=== PATIENT | male | born 1945 | race Caucasian/White ===

== ENCOUNTER 2018-09-04 04:17 | Observation (INO) | payer OTHER ==
[2018-09-04 05:01] VITALS: BMI 31.1
[2018-09-04] MEDS ORDERED: ONDANSETRON 4 MG/2 ML VIAL IVPUSH ONE (06:08)
[2018-09-04] MEDS ORDERED: ONDANSETRON 4 MG/2 ML VIAL ONE (06:23)
[2018-09-04 06:24] LABS: HEMATOCRIT 39.8 % (35.4-49); HEMOGLOBIN 13.5 GM/dL (11.7-16.9); MCH 30.6 pg (25.7-33.7); MCHC 33.9 g/dl (32.0-35.9); MEAN CELL VOLUME 90.4 fl (80-96); MEAN PLT VOLUME 10.8 fl (7.5-11.1); PLATELET COUNT 140 K/MM3 (134-434); RDW 13.2 % (11.9-15.9); WHITE BLOOD COUNT 10.8 K/mm3 (4.0-10.0)
[2018-09-04 06:51] LABS: ALBUMIN 4.3 g/dl (3.4-5.0); ALK PHOS 90 U/L (45-117); ANION GAP 8 MMOL/L (8-16); BILIRUBIN,TOTAL 0.4 mg/dL (0.2-1); BLOOD UREA NITROGEN 13 mg/dL (7-18); CHLORIDE 103 mmol/L (98-107); CO2 26 mmol/L (21-32); CREATININE 0.9 mg/dL (0.55-1.3); GLUCOSE,RANDOM 267 mg/dL (74-106); POTASSIUM 4.5 mmol/L (3.5-5.1); SGOT/AST 17 U/L (15-37); SGPT/ALT 40 U/L (13-61); SODIUM 137 mmol/L (136-145); TOT PROT 7.6 g/dl (6.4-8.2)
--- NOTE | 2018-09-04 07:43 | PDOC ---
History of Present Illness - General Chief Complaint: Altered Mental Status Stated Complaint: Altered Mental Status Time Seen by Provider: 09/04/18 07:11 History Source: Patient, Family (, daughter, son in law) Exam Limitations: No Limitations - History of Present Illness Initial Comments: 09/04/18 07:35 72 yo male pmh HTN, [place], CHF, COPD, DM and s/p Prostatectomy BIBA to the ED for home AMS. Family present, state at 3 am pt noted to be breathing very shallow, deep breaths, became rigid and suddenly confused. Pt unable to speak or ambulate , EMS on arrival reported agitation requiring Ketamine. Family state around 5 30 , after Ketamine dissipated, pt no longer altered, resting comfortably without complaints. Of note, pt had a fall in [place] 1 month ago, hit his head on a rock and has had intermittent headaches since then, followed up with PCP 3 days ago, blood work pending, no imaging, no medication changes made how ever, states he received 2 Vaccinations (tetanus and Zoster). Past History - Past Medical History Allergies/Adverse Reactions: Allergies Allergy/AdvReac Type Severity Reaction Status Date / Time No Known Drug Allergies Allergy Verified 09/04/18 05:01 Home Medications: Ambulatory Orders Aspirin [ASA -] 81 mg PO DAILY 10/29/13 Candesartan Cilexetil [Atacand -] 16 mg PO BID 09/04/18 Enalapril Maleate [Vasotec] 20 mg PO DAILY 09/04/18 Insulin Glargine,Hum.rec.anlog [Toujeo Solostar] 0 unit SQ ASDIR 09/04/18 Rosuvastatin [Crestor -] 10 mg PO DAILY 09/04/18 Anemia: No Asthma: Yes Cancer: Yes (PROSTATE) Cardiac Disorders: No CVA: No COPD: No CHF: No Dementia: No Diabetes: No GI Disorders: No Disorders: Yes ([place] PROSTATE) HTN: No Hypercholesterolemia: No Liver Disease: No Seizures: No Thyroid Disease: No - Surgical History Abdominal Surgery: No Appendectomy: No Cardiac Surgery: No Cholecystectomy: No Lung Surgery: No Neurologic Surgery: No Orthopedic Surgery: No - Suicide/Smoking/Psychosocial Hx Smoking History: Never smoked Have you smoked in the past 12 months: No If you are a former smoker, when did you quit?: 1974 Information on smoking cessation initiated: No Hx Alcohol Use: No Drug/Substance Use Hx: No Substance Use Type: None Hx Substance Use Treatment: No *Physical Exam - Vital Signs Last Vital Signs Temp Pulse Resp BP Pulse Ox 97.6 F 92 H 18 170/97 99 09/04/18 04:17 09/04/18 04:17 09/04/18 04:17 09/04/18 04:17 09/04/18 04:17 ED Treatment Course - LABORATORY CBC & Chemistry Diagram: 09/04/18 06:15 09/04/18 06:15 - ADDITIONAL ORDERS Additional order review: Laboratory Results 09/04/18 09/04/18 09/04/18 06:15 06:15 06:15 WBC 10.8 H RBC 4.40 Hgb 13.5 Hct 39.8 D MCV 90.4 MCH 30.6 MCHC 33.9 RDW 13.2 Plt Count 140 MPV 10.8 Sodium 137 Potassium 4.5 Chloride 103 Carbon Dioxide 26 Anion Gap 8 BUN 13 Creatinine 0.9 Est GFR (CKD-EPI)AfAm 97.86 Est GFR (CKD-EPI)NonAf 84.43 Random Glucose 267 H Lactic Acid 3.1 H* Calcium 9.0 Total Bilirubin 0.4 AST 17 ALT 40 Alkaline Phosphatase 90 Creatine Kinase 200 Creatine Kinase Index 0.7 CK-MB (CK-2) 1.4 Troponin I < 0.02 Total Protein 7.6 Albumin 4.3 09/04/18 06:15 RBC 4.40 MCV 90.4 MCHC 33.9 RDW 13.2 MPV 10.8 - Medications Given in the ED: ED Medications Discontinued Medications Generic Name Dose Route Start Last Admin Trade Name Alexis PRN Reason Stop Dose Admin Ondansetron HCl 4 mg 09/04/18 06:08 09/04/18 06:27 Zofran Injection IVPUSH 09/04/18 06:09 4 mg ONCE ONE Administration *DC/Admit/Observation/Transfer Diagnosis at time of Disposition: Altered mental status - Discharge Dispostion Condition at time of disposition: Fair Decision to Admit order: Yes - Referrals - Patient Instructions - Post Discharge Activity
[2018-09-04] MEDS ORDERED: SODIUM CHLORIDE 250 ML IV STA (08:07)
[2018-09-04] MEDS ORDERED: ACETAMINOPHEN 325 MG TABLET (FP) PO ONE (08:53)
--- NOTE | 2018-09-04 08:59 | PDOC ---
Attending Attestation - Resident Resident Name: LiliMack - ED Attending Attestation I have performed the following: I have examined & evaluated the patient, The case was reviewed & discussed with the resident, I agree w/resident's findings & plan, Exceptions are as noted - HPI HPI: 09/04/18 08:53 72 yo male pmh HTN, [place], CHF, COPD, DM and s/p Prostatectomy BIBA to the ED for home AMS. At approximately 3 AM found patient rigid unresponsive with difficulty breathing. Episode lasted for a few minutes son-in-law performed the Heimlich maneuver patient then became arousable still appeared confused was not at his baseline then became very agitated EMS was called given ketamine in the field. Patient now back to baseline. - Physicial Exam PE: 09/04/18 08:57 ROS: A complete review of 10 out of 10 review of systems is taken and is negative apart from what is previously mentioned below and in the HPI. Vitals: Triage Vital signs reviewed General Appearance: no acute distress, well nourished well developed, Head: Atraumatic, Eyes: Pupils equal reactive round, extraocular movement intact Neck: Supple;No Nucal rigidity Chest Wall: Nontender Cardiac: Regular rate and rhythym, no murmurs, no rubs, no gallops, Lungs: Clear to auscultation bilateral, good air movement bilaterally, Abdomen: Soft, non distended, normal bowel sounds, non tender to palpation Extremities: Full range of motion to all extremities, no cyanosis, clubbing, or edema Skin: Warm and dry, no rashes or lesions, no rash, no petechiae Neuro: Cranial Nerves 2-12 grossly intact, Strength intact to all extremities, Sensation intact to all extremities,gait normal Psych: normal mood, normal affect - Medical Decision Making 09/04/18 08:58 Well-appearing no apparent distress now back to baseline mental status differential diagnosis includes TIA versus seizure Labs head CT within normal limits We'll admit to medicine for further management.
[2018-09-04] MEDS ORDERED: ACETAMINOPHEN 325 MG TABLET (FP) ONE (09:11)
[2018-09-04] MEDS ORDERED: ONDANSETRON 4 MG/2 ML VIAL IVPUSH PRN (09:33)
--- NOTE | 2018-09-04 09:38 | HP ---
Admitting History and Physical - Admission Chief Complaint: I could not breathe History of Present Illness: Mr Santamaria is a very pleasant 72 year old male who was brought in by his family for difficulty breathing and confusion. He recently flew back from [facility] 1 week ago. He lives 6 months there and 6 months here. Of note he fell and hit his head 1 month ago and has a chronic headache since. However he was seen by both his physician there and here. It was also a 5 hour flight which he remained seated for the entire time. He denies leg pain or swelling since the trip. He was in his normal state of health, he has a history of CHF with [facility] and this has not changed. He was prescribed a diuretic in the past but stopped taking it over a year ago because he felt fine. This morning he woke up at 3am very short of breath. He was gasping for air, breathing rapidly, and trying to take a deep breath. He was also confused and combative at this time. Family got him out of bed and walked him, he was unsteady and when they sat him down his breathing improved but he was still confused. At this time he started speaking clearly but was not making sense per family, asking questions like "where am I" and who are you". EMS was called and he remained combative so he received ketamine in the field and was brought in. Here he is feeling better. He denies current lightheadedness, dizziness, confusion, fevers, chills, chest pain or pressure, shortness of breath, nausea, vomiting, diarrhea, constipation , difficulty or pain on urination, or edema. History Source: Patient, Family Member Limitations to Obtaining History: Language Barrier - Past Medical History Cardiovascular: Yes: CHF, HTN, Hyperlipdemia Renal/: Yes: Cancer Endocrine: Yes: Diabetes Mellitus - Past Surgical History Past Surgical History: Yes: TURP - Smoking History Smoking history: Former smoker Have you smoked in the past 12 months: No If you are a former smoker, when did you quit?: 1974 - Alcohol/Substance Use Hx Alcohol Use: No History of Substance Use: reports: None - Social History Usual Living Arrangement: Yes: With Spouse ADL: Independent History of Recent Travel: Yes Home Medications - Allergies Allergies/Adverse Reactions: Allergies Allergy/AdvReac Type Severity Reaction Status Date / Time No Known Drug Allergies Allergy Verified 09/04/18 05:01 - Home Medications Home Medications: Ambulatory Orders Aspirin [ASA -] 81 mg PO DAILY 10/29/13 Candesartan Cilexetil [Atacand -] 16 mg PO BID 09/04/18 Enalapril Maleate [Vasotec] 20 mg PO DAILY 09/04/18 Insulin Glargine,Hum.rec.anlog [Valeri Mcdonaldostar] 0 unit SQ ASDIR 09/04/18 Rosuvastatin [Crestor -] 10 mg PO DAILY 09/04/18 Family Disease History - Family Disease History Family Disease History: Respiratory: Mother (asthma) Review of Systems Findings/Remarks: full review of systems obtained, as per HPI and otherwise negative. Physical Examination Vital Signs: Vital Signs Temperature 36.4 C 09/04/18 04:17 Pulse Rate 79 09/04/18 07:53 Respiratory Rate 19 09/04/18 07:53 Blood Pressure 149/87 09/04/18 07:53 O2 Sat by Pulse Oximetry (%) 100 09/04/18 07:53 Constitutional: Yes: Well Nourished, No Distress, Calm Eyes: Yes: Conjunctiva Clear, EOM Intact, PERRL HENT: Yes: Atraumatic, Normocephalic Cardiovascular: Yes: Regular Rate and Rhythm. No: Gallop, Murmur, Rub Respiratory: Yes: Regular, CTA Bilaterally. No: Rales, Rhonchi, Wheezes Gastrointestinal: Yes: Normal Bowel Sounds, Soft. No: Distention, Tenderness Extremities: Yes: WNL Edema: No Labs: CBC, BMP 09/04/18 06:15 09/04/18 06:15 Imaging - Results Chest X-ray: Report Reviewed, Image Reviewed Cat Scan: Report Reviewed EKG: Image Reviewed Problem List - Problems (1) SOB (shortness of breath) Assessment/Plan: -unclear cause -history of CHF and off of diuretics, possible CHF exacerbation with hypoxia -will obtain BNP and ECHO -even though did not complain of leg swelling, consider PE -will check d-dimer and duplex dopplers -if negative, no need for CTA -if positive will obtain -since stable can hold on anticoagulation -monitor overnight Code(s): R06.02 - SHORTNESS OF BREATH (2) Altered mental status Assessment/Plan: -unclear cause and currently resolved -with elevated lactic acid possible seizure but very atypical -appreciate Dr Valdze and case discussed -no need for urgent seizure medications but since with head trauma in past can benefit from outpatient EEG -otherwise as above Code(s): R41.82 - ALTERED MENTAL STATUS, UNSPECIFIED (3) HTN (hypertension) Assessment/Plan: -continue outpatient regimen Code(s): I10 - ESSENTIAL (PRIMARY) HYPERTENSION (4) Diabetes Assessment/Plan: -diabetic diet -SSI and FSBS Code(s): E11.9 - TYPE 2 DIABETES MELLITUS WITHOUT COMPLICATIONS (5) HLD (hyperlipidemia) Assessment/Plan: -continue statin Code(s): E78.5 - HYPERLIPIDEMIA, UNSPECIFIED (6) CHF (congestive heart failure) Assessment/Plan: -history of CHF in past -as above Code(s): I50.9 - HEART FAILURE, UNSPECIFIED
[2018-09-04 10:09] LABS: URINE APPEARANCE CLEAR; URINE BILIRUBIN NEGATIVE (NEGATIVE); URINE COLOR YELLOW; URINE GLUCOSE (UA) 3+ (NEGATIVE); URINE KETONE NEGATIVE (NEGATIVE); URINE LEUK ESTERASE NEGATIVE (NEGATIVE); URINE NITRITE NEGATIVE (NEGATIVE); URINE PROTEIN NEGATIVE (NEGATIVE); URINE UROBILINOGEN 0.2 mg/dL (0.2-1.0)
[2018-09-04] MEDS ORDERED: ENALAPRIL MALEATE 5 MG TABLET (FP) ONE ×3 (10:17→10:19)
[2018-09-04] MEDS ORDERED: ASPIRIN 81 MG CHEWABLE TABLETS ONE (10:17)
[2018-09-04] MEDS: ASPIRIN 81 MG CHEWABLE TABLETS PO SCH (10:20)
[2018-09-04] MEDS: ENALAPRIL MALEATE 10 MG TABLET (FP) PO SCH (10:20)
--- NOTE | 2018-09-04 10:58 | CONSULT ---
Consult - text type - Consultation Consultation Note: Neurology History of Present Illness: Pleasant 72 year old male who was brought in by his family for difficulty breathing and confusion. He recently flew back from [facility] 1 week prior to admission. He lives 6 months there and 6 months here. Of note he fell and hit his head 1 month ago and has a chronic headache since. However he was seen by both his physician there and here. It was also a 5 hour flight which he remained seated for the entire time. He denied leg pain or swelling since the trip. He was in his normal state of health, he has a history of CHF with [facility] and this has not changed. He was prescribed a diuretic in the past but stopped taking it over a year ago because he felt fine. Reportedly, the morning of admission he woke up at 3am very short of breath. He was gasping for air, breathing rapidly, and trying to take a deep breath. He was also confused and combative at this time. Family got him out of bed and walked him, he was unsteady and when they sat him down his breathing improved but he was still confused. At this time he started speaking clearly but was not making sense per family, asking questions like "where am I" and who are you". EMS was called and he remained combative so he received ketamine in the field and was brought in. In ER was reportedly was feeling better. He denied lightheadedness, dizziness, confusion, fevers, chills, chest pain or pressure, shortness of breath, nausea, vomiting, diarrhea, constipation, difficulty or pain on urination, or edema. Discussed case with the ER and he was admitted for monitoring and observation. He appears to be neurologically at baseline and without any abnormal behavior. Noncontrast head CT was completed and without any acute structural abnormalities. at this point, I would not start him on antiepileptic medication as he does not have prior history of seizures and would not want him committed to this type of medication long-term for a first-time event. - Past Medical History Cardiovascular: Yes: CHF, HTN, Hyperlipdemia Renal/: Yes: Cancer Endocrine: Yes: Diabetes Mellitus - Past Surgical History Past Surgical History: Yes: TURP - Smoking History Smoking history: Former smoker Have you smoked in the past 12 months: No If you are a former smoker, when did you quit?: 1974 - Alcohol/Substance Use Hx Alcohol Use: No History of Substance Use: reports: None - Social History Usual Living Arrangement: Yes: With Spouse ADL: Independent History of Recent Travel: Yes Home Medications - Allergies Allergies/Adverse Reactions: Allergies Allergy/AdvReac Type Severity Reaction Status Date / Time No Known Drug Allergies Allergy Verified 09/04/18 05:01 - Home Medications Home Medications: Ambulatory Orders Aspirin [ASA -] 81 mg PO DAILY 10/29/13 Candesartan Cilexetil [Atacand -] 16 mg PO BID 09/04/18 Enalapril Maleate [Vasotec] 20 mg PO DAILY 09/04/18 Insulin Glargine,Hum.rec.anlog [Toujeo Solostar] 0 unit SQ ASDIR 09/04/18 Rosuvastatin [Crestor -] 10 mg PO DAILY 09/04/18 Family Disease History - Family Disease History Family Disease History: Respiratory: Mother (asthma) Review of Systems Findings/Remarks: full review of systems obtained, as per HPI and otherwise negative. Physical Examination Vital Signs: Vital Signs Temperature 36.4 C 09/04/18 04:17 Pulse Rate 79 09/04/18 07:53 Respiratory Rate 19 09/04/18 07:53 Blood Pressure 149/87 09/04/18 07:53 O2 Sat by Pulse Oximetry (%) 100 09/04/18 07:53 Constitutional: Yes: Well Nourished, No Distress, Calm Eyes: Yes: Conjunctiva Clear, EOM Intact, PERRL HENT: Yes: Atraumatic, Normocephalic Cardiovascular: Yes: Regular Rate and Rhythm. No: Gallop, Murmur, Rub Respiratory: Yes: Regular, CTA Bilaterally. No: Rales, Rhonchi, Wheezes Gastrointestinal: Yes: Normal Bowel Sounds, Soft. No: Distention, Tenderness Extremities: Yes: WNL Neuro: CN intact, moves all extremities equally, sensory intact, no slurred speech, good and nose normal, gait deferred CBCD WBC 10.8 K/mm3 (4.0-10.0) H 09/04/18 06:15 RBC 4.40 M/mm3 (4.00-5.60) 09/04/18 06:15 Hgb 13.5 GM/dL (11.7-16.9) 09/04/18 06:15 Hct 39.8 % (35.4-49) D 09/04/18 06:15 MCV 90.4 fl (80-96) 09/04/18 06:15 MCHC 33.9 g/dl (32.0-35.9) 09/04/18 06:15 RDW 13.2 % (11.9-15.9) 09/04/18 06:15 Plt Count 140 K/MM3 (134-434) 09/04/18 06:15 MPV 10.8 fl (7.5-11.1) 09/04/18 06:15 CMP Sodium 137 mmol/L (136-145) 09/04/18 06:15 Potassium 4.5 mmol/L (3.5-5.1) 09/04/18 06:15 Chloride 103 mmol/L (98-107) 09/04/18 06:15 Carbon Dioxide 26 mmol/L (21-32) 09/04/18 06:15 Anion Gap 8 MMOL/L (8-16) 09/04/18 06:15 BUN 13 mg/dL (7-18) 09/04/18 06:15 Creatinine 0.9 mg/dL (0.55-1.3) 09/04/18 06:15 Random Glucose 267 mg/dL (74-106) H 09/04/18 06:15 Calcium 9.0 mg/dL (8.5-10.1) 09/04/18 06:15 Total Bilirubin 0.4 mg/dL (0.2-1) 09/04/18 06:15 AST 17 U/L (15-37) 09/04/18 06:15 ALT 40 U/L (13-61) 09/04/18 06:15 Alkaline Phosphatase 90 U/L (45-117) 09/04/18 06:15 Total Protein 7.6 g/dl (6.4-8.2) 09/04/18 06:15 Albumin 4.3 g/dl (3.4-5.0) 09/04/18 06:15 CARDIAC ENZYMES Creatine Kinase 200 U/L (26-308) 09/04/18 06:15 Troponin I < 0.02 ng/ml (0.00-0.05) 09/04/18 06:15 Imaging - Results Chest X-ray: Report Reviewed Cat Scan: Report Reviewed Plan Pleasant 72 year old male who was brought in by his family for difficulty breathing and confusion. He recently flew back from [facility] 1 week prior to admission. He lives 6 months there and 6 months here. Of note he fell and hit his head 1 month ago and has a chronic headache since. However he was seen by both his physician there and here. It was also a 5 hour flight which he remained seated for the entire time. He denied leg pain or swelling since the trip. He was in his normal state of health, he has a history of CHF with [facility] and this has not changed. He was prescribed a diuretic in the past but stopped taking it over a year ago because he felt fine. Reportedly, the morning of admission he woke up at 3am very short of breath. He was gasping for air, breathing rapidly, and trying to take a deep breath. He was also confused and combative at this time. Family got him out of bed and walked him, he was unsteady and when they sat him down his breathing improved but he was still confused. At this time he started speaking clearly but was not making sense per family, asking questions like "where am I" and who are you". EMS was called and he remained combative so he received ketamine in the field and was brought in. In ER was reportedly was feeling better. He denied lightheadedness, dizziness, confusion, fevers, chills, chest pain or pressure, shortness of breath, nausea, vomiting, diarrhea, constipation, difficulty or pain on urination, or edema. Discussed case with the ER and he was admitted for monitoring and observation. He appears to be neurologically at baseline and without any abnormal behavior. Noncontrast head CT was completed and without any acute structural abnormalities. at this point, I would not start him on antiepileptic medication as he does not have prior history of seizures and would not want him committed to this type of medication long-term for a first-time event. Continue respiratory/pulmonary management. glucose elevated, recommend tighter glycemic control. Monitor blood pressure, maintain normotensive range, continue current regiment. Continue statin for hyperlipidemia, continue adequate hydration.
--- NOTE | 2018-09-04 12:54 | EKG ---
Test Reason : Blood Pressure : / mmHG Vent. Rate : 077 BPM Atrial Rate : 077 BPM P-R Int : 170 ms QRS Dur : 098 ms QT Int : 382 ms P-R-T Axes : 038 -11 018 degrees QTc Int : 432 ms NORMAL SINUS RHYTHM INFERIOR INFARCT (CITED ON OR BEFORE 30-OCT-2013) ABNORMAL ECG WHEN COMPARED WITH ECG OF 01-NOV-2013 16:27, NO SIGNIFICANT CHANGE WAS FOUND Confirmed by CARMELLA SNELL, BRANDON ([id number]) on 09/04/2018 12:54:12 PM Referred By: Confirmed By:BRANDON WEIR MD
[2018-09-04] MEDS: INSULIN SLIDING SCALE (NOVOLOG) 1 VIAL SQ SCH ×3 (13:58→22:05)
[2018-09-04] MEDS ORDERED: INSULIN (NOVOLOG) ASPART 100 UNITS/ML 10ML VIAL ONE (14:03)
[2018-09-04] MEDS: ACETAMINOPHEN 325 MG TABLET (FP) PO PRN (15:51)
[2018-09-04] MEDS ORDERED: PNEUMOC 13-VAL CONJ-DIP CRM/PF 0.5 ML DISP.SYRIN IM ONE (16:04)
--- NOTE | 2018-09-04 16:23 | ECHO ---
Name: BEAU ELLIOTT Exam:Adult Echocardiogram Study Date: 09/04/2018 01:31 PM Age: 72 yrs Reason For Study: LUNG CONGESTION Height: 62 in Weight: 170 lb BSA: 1.8 m2 MMode/2D Measurements & Calculations IVSd: 0.99 cm Ao root diam: 3.9 cm LVIDd: 3.9 cm LA dimension: 3.4 cm LVIDs: 2.3 cm ACS: 1.7 cm LVPWd: 1.0 cm IVSs: 1.6 cm LVPWs: 1.3 cm EDV(Teich): 67.1 ml ESV(Teich): 17.3 ml LVOT diam: 2.0 cm Doppler Measurements & Calculations MV E max arsenio: 80.9 cm/sec Ao V2 max: 190.7 cm/sec MV A max arsenio: 93.8 cm/sec Ao max P.6 mmHg MV E/A: 0.86 Ao V2 mean: 135.3 cm/sec Ao mean P.3 mmHg Ao V2 VTI: 35.8 cm LISSA(I,D): 2.0 cm2 LISSA(V,D): 2.1 cm2 LV V1 max P.9 mmHg SV(LVOT): 70.6 ml LV V1 mean P.7 mmHg LV V1 max: 121.5 cm/sec LV V1 mean: 91.3 cm/sec LV V1 VTI: 21.7 cm TR max arsenio: 226.7 cm/sec Med Peak E' Arsenio: 5.8 cm/sec TR max P.6 mmHg Med E/e': 13.9 Lat Peak E' Arsenio: 8.1 cm/sec Lat E/e': 10.0 Procedure A complete two-dimensional transthoracic echocardiogram was performed (2D, M-mode, Doppler and color flow Doppler). Left Ventricle The left ventricular size, thickness and function are normal. The left ventricular ejection fraction is normal. Ejection Fraction = 60-65%. The left ventricular wall motion is normal. Right Ventricle The right ventricle is normal in size and function. Atria Normal left and right atrial size and function. Mitral Valve There is no mitral regurgitation noted. Tricuspid Valve There is trace tricuspid regurgitation. Right ventricular systolic pressure is normal. Aortic Valve The aortic valve is trileaflet. No hemodynamically significant valvular aortic stenosis. No aortic regurgitation is present. Pulmonic Valve There is no pulmonic valvular regurgitation. Great Vessels Mild aortic root dilatation. Pericardium/Pleura There is no pericardial effusion. Interpretation Summary The left ventricular size, thickness and function are normal The right ventricle is normal in size and function. There is trace tricuspid regurgitation. Mild aortic root dilatation. MD Frank Hassan 09/04/2018 04:22 PM
[2018-09-04] MEDS ORDERED: RANITIDINE HCL 150 MG TABLET (FP) PO ONE (18:30)
[2018-09-04] MEDS ORDERED: ROSUVASTATIN CA 10 MG TABLET (FP) PO SCH (22:00)
[2018-09-05] MEDS: ACETAMINOPHEN 325 MG TABLET (FP) PO PRN ×2 (03:15→10:08)
[2018-09-05] MEDS: INSULIN SLIDING SCALE (NOVOLOG) 1 VIAL SQ SCH ×2 (06:29→11:32)
[2018-09-05] MEDS ORDERED: INSULIN (NOVOLOG) ASPART 100 UNITS/ML 10ML VIAL ONE (06:59)
[2018-09-05 07:43] LABS: BASO % 0.3 % (0-2.0); EOS % 2.8 % (0-4.5); HEMATOCRIT 37.1 % (35.4-49); HEMOGLOBIN 12.4 GM/dL (11.7-16.9); LYMPH % 27.7 % (8-40); MCH 30.4 pg (25.7-33.7); MCHC 33.3 g/dl (32.0-35.9); MEAN CELL VOLUME 91.3 fl (80-96); MEAN PLT VOLUME 11.3 fl (7.5-11.1); MONO % 8.6 % (3.8-10.2); NEUT % 60.6 % (42.8-82.8); PLATELET COUNT 138 K/MM3 (134-434); RBC 4.07 M/mm3 (4.00-5.60); RDW 13.3 % (11.9-15.9); WHITE BLOOD COUNT 7.4 K/mm3 (4.0-10.0)
[2018-09-05 07:45] LABS: CALCIUM 8.8 mg/dL (8.5-10.1); CREATININE 0.8 mg/dL (0.55-1.3); MAGNESIUM 2.3 mg/dL (1.8-2.4); PHOSPHOROUS 3.1 mg/dL (2.5-4.9); POTASSIUM 4.2 mmol/L (3.5-5.1)
--- NOTE | 2018-09-05 08:36 | PN ---
Progress Note (short form) - Note Progress Note: Neurology History of Present Illness: Pleasant 72 year old male who was brought in by his family for difficulty breathing and confusion. He recently flew back from [facility] 1 week prior to admission. He lives 6 months there and 6 months here. Of note he fell and hit his head 1 month ago and has a chronic headache since. However he was seen by both his physician there and here. It was also a 5 hour flight which he remained seated for the entire time. He denied leg pain or swelling since the trip. He was in his normal state of health, he has a history of CHF with [facility] and this has not changed. He was prescribed a diuretic in the past but stopped taking it over a year ago because he felt fine. Reportedly, the morning of admission he woke up at 3am very short of breath. He was gasping for air, breathing rapidly, and trying to take a deep breath. He was also confused and combative at this time. Family got him out of bed and walked him, he was unsteady and when they sat him down his breathing improved but he was still confused. At this time he started speaking clearly but was not making sense per family, asking questions like "where am I" and who are you". EMS was called and he remained combative so he received ketamine in the field and was brought in. In ER was reportedly was feeling better. He denied lightheadedness, dizziness, confusion, fevers, chills, chest pain or pressure, shortness of breath, nausea, vomiting, diarrhea, constipation, difficulty or pain on urination, or edema. Discussed case with the ER and he was admitted for monitoring and observation. He appears to be neurologically at baseline and without any abnormal behavior. Noncontrast head CT was completed and without any acute structural abnormalities. at this point, I would not start him on antiepileptic medication as he does not have prior history of seizures and would not want him committed to this type of medication long-term for a first-time event. No events overnight and neurologically stable at this time. Does describe slight headache and constitutional symptoms but otherwise appears at baseline. Active Medications Acetaminophen (Tylenol -) 650 mg PO Q4H PRN PRN Reason: PAIN 1-3 Last Admin: 09/05/18 03:15 Dose: 650 mg Aspirin (Asa -) 81 mg PO DAILY [facility] Last Admin: 09/04/18 10:20 Dose: 81 mg Enalapril Maleate (Vasotec -) 20 mg PO DAILY [facility] Last Admin: 09/04/18 10:20 Dose: 20 mg Insulin Aspart (Novolog Vial Sliding Scale -) 1 vial SQ [facility]; Protocol Last Admin: 09/05/18 06:29 Dose: 4 unit Non-Formulary Medication (Candesartan Cilexetil) 16 mg PO BID [facility] Ondansetron HCl (Zofran Injection) 4 mg IVPUSH Q6H PRN PRN Reason: NAUSEA Rosuvastatin Calcium (Crestor -) 10 mg PO HS [facility] Last Admin: 09/04/18 22:05 Dose: 10 mg - Allergies Allergies/Adverse Reactions: Allergies Allergy/AdvReac Type Severity Reaction Status Date / Time No Known Drug Allergies Allergy Verified 09/04/18 05:01 - Home Medications Home Medications: Ambulatory Orders Aspirin [ASA -] 81 mg PO DAILY 10/29/13 Candesartan Cilexetil [Atacand -] 16 mg PO BID 09/04/18 Enalapril Maleate [Vasotec] 20 mg PO DAILY 09/04/18 Insulin Glargine,Hum.rec.anlog [Toujeo Solostar] 0 unit SQ [facility] 09/04/18 Rosuvastatin [Crestor -] 10 mg PO DAILY 09/04/18 Physical Examination Vital Signs: Vital Signs Period Temp Pulse Resp BP Sys/Banks Pulse Ox Last 24 Hr 98.4 F-99.5 F 55-86 16-20 111-134/59-81 93-97 Constitutional: Yes: Well Nourished, No Distress, Calm Eyes: Yes: Conjunctiva Clear, EOM Intact, PERRL HENT: Yes: Atraumatic, Normocephalic Cardiovascular: Yes: Regular Rate and Rhythm. No: Gallop, Murmur, Rub Respiratory: Yes: Regular, CTA Bilaterally. No: Rales, Rhonchi, Wheezes Gastrointestinal: Yes: Normal Bowel Sounds, Soft. No: Distention, Tenderness Extremities: Yes: WNL Neuro: CN intact, moves all extremities equally, sensory intact, no slurred speech, good and nose normal, gait deferred CBCD WBC 7.4 K/mm3 (4.0-10.0) 09/05/18 05:37 RBC 4.07 M/mm3 (4.00-5.60) 09/05/18 05:37 Hgb 12.4 GM/dL (11.7-16.9) 09/05/18 05:37 Hct 37.1 % (35.4-49) 09/05/18 05:37 MCV 91.3 fl (80-96) 09/05/18 05:37 MCHC 33.3 g/dl (32.0-35.9) 09/05/18 05:37 RDW 13.3 % (11.9-15.9) 09/05/18 05:37 Plt Count 138 K/MM3 (134-434) 09/05/18 05:37 MPV 11.3 fl (7.5-11.1) H 09/05/18 05:37 CMP Sodium 139 mmol/L (136-145) 09/05/18 05:57 Potassium 4.2 mmol/L (3.5-5.1) 09/05/18 05:57 Chloride 103 mmol/L (98-107) 09/05/18 05:57 Carbon Dioxide 28 mmol/L (21-32) 09/05/18 05:57 Anion Gap 7 MMOL/L (8-16) L 09/05/18 05:57 BUN 16 mg/dL (7-18) 09/05/18 05:57 Creatinine 0.8 mg/dL (0.55-1.3) 09/05/18 05:57 Random Glucose 225 mg/dL (74-106) H 09/05/18 05:57 Calcium 8.8 mg/dL (8.5-10.1) 09/05/18 05:57 Total Bilirubin 0.4 mg/dL (0.2-1) 09/04/18 06:15 AST 17 U/L (15-37) 09/04/18 06:15 ALT 40 U/L (13-61) 09/04/18 06:15 Alkaline Phosphatase 90 U/L (45-117) 09/04/18 06:15 Total Protein 7.6 g/dl (6.4-8.2) 09/04/18 06:15 Albumin 4.3 g/dl (3.4-5.0) 09/04/18 06:15 CARDIAC ENZYMES Creatine Kinase 200 U/L (26-308) 09/04/18 06:15 Troponin I < 0.02 ng/ml (0.00-0.05) 09/04/18 06:15 Imaging - Results Chest X-ray: Report Reviewed Cat Scan: Report Reviewed Plan Pleasant 72 year old male who was brought in by his family for difficulty breathing and confusion. He recently flew back from [facility] 1 week prior to admission. He lives 6 months there and 6 months here. Of note he fell and hit his head 1 month ago and has a chronic headache since. However he was seen by both his physician there and here. It was also a 5 hour flight which he remained seated for the entire time. He denied leg pain or swelling since the trip. He was in his normal state of health, he has a history of CHF with [facility] and this has not changed. He was prescribed a diuretic in the past but stopped taking it over a year ago because he felt fine. Reportedly, the morning of admission he woke up at 3am very short of breath. He was gasping for air, breathing rapidly, and trying to take a deep breath. He was also confused and combative at this time. Family got him out of bed and walked him, he was unsteady and when they sat him down his breathing improved but he was still confused. At this time he started speaking clearly but was not making sense per family, asking questions like "where am I" and who are you". EMS was called and he remained combative so he received ketamine in the field and was brought in. In ER was reportedly was feeling better. He denied lightheadedness, dizziness, confusion, fevers, chills, chest pain or pressure, shortness of breath, nausea, vomiting, diarrhea, constipation, difficulty or pain on urination, or edema. Discussed case with the ER and he was admitted for monitoring and observation. He appears to be neurologically at baseline and without any abnormal behavior. Noncontrast head CT was completed and without any acute structural abnormalities. at this point, I would not start him on antiepileptic medication as he does not have prior history of seizures and would not want him committed to this type of medication long-term for a first-time event. No events overnight and neurologically stable at this time. Does describe slight headache and constitutional symptoms but otherwise appears at baseline. Continue respiratory/pulmonary management. glucose elevated on admission, recommend tighter glycemic control. Monitor blood pressure, maintain normotensive range, continue current regiment. Continue statin for hyperlipidemia, continue adequate hydration.
[2018-09-05] MEDS: ENALAPRIL MALEATE 10 MG TABLET (FP) PO SCH (10:08)
[2018-09-05] MEDS: ASPIRIN 81 MG CHEWABLE TABLETS PO SCH (10:08)
[2018-09-05] MEDS ORDERED: RANITIDINE HCL 150 MG TABLET (FP) PO SCH (10:45)
[2018-09-05] MEDS ORDERED: VALSARTAN 160 MG TABLET (UD) PO SCH (12:00)
[2018-09-05 15:01] VITALS: BP 122/65; PULSE 60; TEMP 98.5
--- NOTE | 2018-09-05 16:42 | DS ---
Physical Examination Vital Signs: Vital Signs Temperature 36.9 C 09/05/18 10:00 Pulse Rate 60 09/05/18 10:00 Respiratory Rate 20 09/05/18 10:00 Blood Pressure 122/65 09/05/18 10:00 O2 Sat by Pulse Oximetry (%) 100 09/05/18 09:00 Constitutional: Yes: Well Nourished, No Distress, Calm Cardiovascular: Yes: Regular Rate and Rhythm. No: Gallop, Murmur, Rub Respiratory: Yes: Regular, CTA Bilaterally. No: Rales, Rhonchi, Wheezes Gastrointestinal: Yes: Normal Bowel Sounds, Soft. No: Distention, Tenderness Extremities: Yes: WNL Edema: No Labs: CBC, BMP 09/05/18 05:37 09/05/18 05:57 Discharge Summary Reason For Visit: AMS Current Active Problems Altered mental status (Acute) CHF (congestive heart failure) (Acute) Diabetes (Acute) HLD (hyperlipidemia) (Acute) HTN (hypertension) (Acute) SOB (shortness of breath) (Acute) Hospital Course: (1) SOB (shortness of breath) Code(s): R06.02 - SHORTNESS OF BREATH (2) Altered mental status Code(s): R41.82 - ALTERED MENTAL STATUS, UNSPECIFIED (3) HTN (hypertension) Code(s): I10 - ESSENTIAL (PRIMARY) HYPERTENSION (4) Diabetes Code(s): E11.9 - TYPE 2 DIABETES MELLITUS WITHOUT COMPLICATIONS (5) HLD (hyperlipidemia) Code(s): E78.5 - HYPERLIPIDEMIA, UNSPECIFIED (6) CHF (congestive heart failure) Code(s): I50.9 - HEART FAILURE, UNSPECIFIED Mr Santamaria is a pleasant 72 year old male who came in with acute episode of difficulty breathing and confusion. He was given ketamine in the field and after this his mental status improved. He was admitted for observation. He had an EKG, ECHO, d-dimer, duplex dopplers, and head CT and all were within normal limits. He was seen by neurology and had low suspicion for seizure. No signs of infection seen. Episode did not recur while here. He is currently stable for discharge home with family. All questions were answered, patient and family mainly stateless speaking and production planning supervisor phone was used. Instructed that they need to establish primary care and information was given. 32 minutes spent in preparation of this discharge Condition: Stable - Instructions Diet, Activity, Other Instructions: diabetic diet. Resume previous activity. Please obtain primary care physician for further outpatient care. You can call my office, which is the [facility], at [phone] Tiana Ramírez (she is fluent in [place]) for follow up if you desire. Disposition: HOME - Home Medications Comprehensive Discharge Medication List: Ambulatory Orders Aspirin [ASA -] 81 mg PO DAILY 10/29/13 Candesartan Cilexetil [Atacand -] 16 mg PO BID 09/04/18 Enalapril Maleate [Vasotec] 20 mg PO DAILY 09/04/18 Insulin Glargine,Hum.rec.anlog [Touracheal Solostar] 0 unit SQ [facility] 09/04/18 Rosuvastatin [Crestor -] 10 mg PO DAILY 09/04/18
== END 2018-09-05 16:46 | disposition home or self-care (01) ==
LOC: JER 04:17 → JERBED 08:59 → J6S 15:06
PROVIDERS: ADMIT Internal Medicine; ATTEND Internal Medicine
PROC: 3E0337Z Introduction of Electrolytic and Water Balance Substance into Peripheral Vein, Percutaneous Approach (ICD-10-PCS; principal; 2018-09-04)
PROC: 3E033GC Introduction of Other Therapeutic Substance into Peripheral Vein, Percutaneous Approach (ICD-10-PCS; 2018-09-04)
PROC: 3E013VG Introduction of Insulin into Subcutaneous Tissue, Percutaneous Approach (ICD-10-PCS; 2018-09-04)
DX: R41.82 Altered mental status, unspecified (principal); R06.02 Shortness of breath; I11.0 Hypertensive heart disease with heart failure; E78.5 Hyperlipidemia, unspecified; I25.2 Old myocardial infarction; I50.9 Heart failure, unspecified; J44.9 Chronic obstructive pulmonary disease, unspecified; E11.9 Type 2 diabetes mellitus without complications; Z87.891 Personal history of nicotine dependence; Z90.79 Acquired absence of other genital organ(s); Z79.4 Long term (current) use of insulin; Z79.82 Long term (current) use of aspirin; Z85.46 Personal history of malignant neoplasm of prostate
CPT/HCPCS: 36415; 70450-TC; 71045-TC-FY; 80048; 80053; 80307; 81003; 82550; 82553; 82962; 83605; 83735; 83880; 84100; 84484; 85025; 85027; 85379; 93005; 93010; 93306-TC; 93970-TC; 96361; 96372; 96374; 99283-25; G0378; G0480

== ENCOUNTER 2023-09-11 15:32 | Emergency (ER) | payer OTHER ==
[2023-09-11 15:43] VITALS: RESP 18; BMI 31.1
[2023-09-11] MEDS: ACETAMINOPHEN 1000 MG/100 ML BAG IVPB ONE ×2 (17:59→18:30)
[2023-09-11] MEDS: LACTATED RINGERS SOLUTION 1000 ML INFUS.BAG IV ONE ×2 (18:00→18:30)
[2023-09-11 18:06] LABS: BASO % 0.3 % (0-2.0); EOS % 0.9 % (0-4.5); HEMATOCRIT 39.7 % (35.4-49); HEMOGLOBIN 13.3 GM/dL (11.7-16.9); LYMPH % 22.1 % (8-40); MCH 29.8 pg (25.7-33.7); MCHC 33.6 g/dl (32.0-35.9); MEAN CELL VOLUME 88.9 fl (80-96); MEAN PLT VOLUME 10.3 fl (7.5-11.1); MONO % 6.3 % (3.8-10.2); NEUT % 70.4 % (42.8-82.8); PLATELET COUNT 176 10^3/uL (134-434); RBC 4.46 M/mm3 (4.00-5.60); RDW 13.5 % (11.9-15.9); WHITE BLOOD COUNT 7.8 K/mm3 (4.0-10.0)
[2023-09-11 18:10] LABS: INR 1.02 (0.83-1.09); PROTHROMBIN TIME (PATIENT) 11.5 SEC (9.7-13.0)
[2023-09-11] MEDS ORDERED: ACETAMINOPHEN INJECTION 100 ML IVPB ONE (18:13)
[2023-09-11] MEDS ORDERED: METOCLOPRAMIDE HCL INJECTION 10 MG/2 ML VIAL ONE (18:13)
[2023-09-11 18:24] LABS: POTASSIUM 4.4 mmol/L (3.5-5.1)
[2023-09-11 18:28] LABS: ALBUMIN 4.4 g/dl (3.4-5.0); BLOOD UREA NITROGEN 13.2 mg/dL (7-18); MAGNESIUM 1.7 mg/dL (1.8-2.4)
[2023-09-11 18:29] LABS: ACTIVATED PTT 30.2 SECONDS (25.2-36.5)
[2023-09-11] MEDS: METOCLOPRAMIDE HCL INJECTION 10 MG/2 ML VIAL IVPB ONE (18:29)
[2023-09-11] MEDS: ONDANSETRON 4 MG/2 ML VIAL IVPUSH ONE ×2 (18:30→21:09)
[2023-09-11 18:31] LABS: CREATININE 0.8 mg/dL (0.55-1.3)
[2023-09-11 18:32] LABS: BILIRUBIN,TOTAL 0.4 mg/dL (0.2-1)
[2023-09-11 18:33] LABS: TOT PROT 7.9 g/dl (6.4-8.2)
[2023-09-11 18:36] LABS: N-TERMINAL BNP 64.9 pg/ml (5-450)
[2023-09-11 20:06] LABS: URINE APPEARANCE CLEAR; URINE BILIRUBIN NEGATIVE (NEGATIVE); URINE COLOR YELLOW; URINE GLUCOSE (UA) NEGATIVE (NEGATIVE); URINE KETONE NEGATIVE (NEGATIVE); URINE LEUK ESTERASE NEGATIVE (NEGATIVE); URINE NITRITE NEGATIVE (NEGATIVE); URINE PROTEIN NEGATIVE (NEGATIVE); URINE UROBILINOGEN 0.2 mg/dL (0.2-1.0)
[2023-09-11] MEDS ORDERED: MAGNESIUM 1GM/D5W - 1 GM/100 ML IVPB IVPB ONE (20:08)
[2023-09-11] MEDS: MAGNESIUM SULF 50% (8.12 MEQ/2 ML-1 GM VIAL) IVPB ONE (20:21)
[2023-09-11] MEDS ORDERED: ONDANSETRON 4 MG/2 ML VIAL ONE (21:02)
[2023-09-11] MEDS ORDERED: MAG HYDROX/AL HYDROX/SIMETH 30 ML UNIT-DOSE CUP ONE (21:02)
[2023-09-11] MEDS: MAG HYDROX/AL HYDROX/SIMETH 30 ML UNIT-DOSE CUP PO ONE (21:09)
[2023-09-11 22:02] VITALS: BP 149/80; PULSE 97; TEMP 99.8
== END 2023-09-11 22:46 | disposition home or self-care (01) ==
LOC: JER 15:32
PROC: 3E033NZ Introduction of Analgesics, Hypnotics, Sedatives into Peripheral Vein, Percutaneous Approach (ICD-10-PCS; principal; 2023-09-11)
PROC: 3E033GC Introduction of Other Therapeutic Substance into Peripheral Vein, Percutaneous Approach (ICD-10-PCS; 2023-09-11)
PROC: 3E033GC Introduction of Other Therapeutic Substance into Peripheral Vein, Percutaneous Approach (ICD-10-PCS; 2023-09-11)
PROC: 3E033GC Introduction of Other Therapeutic Substance into Peripheral Vein, Percutaneous Approach (ICD-10-PCS; 2023-09-11)
DX: R51.9 Headache, unspecified (principal); Z20.822 Contact with and (suspected) exposure to COVID-19
CPT/HCPCS: 0241U-QW; 36415; 70450-TC; 71046-TC-FY; 80053; 81003; 83735; 83880; 84484; 85025; 85610; 85730; 93005; 93010; 96374; 96375; 99285-25; J0131